=== PATIENT | male | born 1945 | race Caucasian/White ===

== ENCOUNTER 2016-11-13 20:49 | Emergency (ER) | payer MEDICARE ==
[2016-11-13] MEDS ORDERED: OXYMETAZOLINE 0.05% NASAL 15 SPRAYS/15 ML BTL NASAL ONE (21:33)
--- NOTE | 2016-11-13 23:11 | ER NURSING DOCUMENTATION ---
Nurse's Notes [facility] Name:Barry Rico Age:71 yrs Sex:Male :1945 Arrival Date:11/13/2016 Time:20:49 Bed2 Private MD: Diagnosis:Anterior Epistaxis Presentation: 11/13 21:15 Presenting complaint: Patient states: nosebleed from left nare on and off this evening. sc1 Transition of care: Home. 21:15 Method Of Arrival: Private Vehicle sc1 21:15 Acuity: CURLY 3 sc1 Triage Assessment: 21:41 General: Appears distressed, well developed, well nourished, well groomed, Behavior is sc1 cooperative, pleasant. Pain: Denies pain. Historical: - Allergies: PENICILLINS; Benadryl; "all antibiotics except tetracycline"; - Home Meds: 1. Lisinopril Oral 2. Lasix Oral 3. Coreg Oral 4. Aspirin Oral 5. pravastatin oral - PMHx: HIGH CHOLESTEROL; HYPERTENSION; Anterior Epistaxis - uncontrolled (November 01, 2016); - PSHx: UNABLE TO OBTAIN; - Immunization history: Pneumococcal vaccine status is unknown. - Ebola Screening: : Patient negative for fever greater than or equal to 101.5 degrees Fahrenheit, and additional compatible Ebola Virus Disease symptoms. Patient denies exposure to infectious person. Patient denies travel to an Ebola-affected area in the 21 days before illness onset. No symptoms or risks identified at this time. . Screenin:42 Infectious Disease Risk None. Abuse screen: Denies threats or abuse. Nutritional sc1 screening: No deficits noted. Assessment: 22:47 Reassessment: pt with only minimal bleeding after removal of nose clamp. lb Vital Signs: 21:14 BP 184 / 101; Pulse 84; Resp 20; Temp 97.8; Pulse Ox 85% on R/A; sc1 23:10 BP 154 / 82; Resp 16; lb ED Course: 20:51 Patient arrived in ED. ma1 21:12 Sherin Cruz, FLORENTIN is Primary Nurse. sc1 21:17 Triage completed. sc1 21:19 Calos Reyes MD is Attending Physician. tl1 21:42 Notified ED Physician of patient's arrival and chief complaint. Dr. Reyes notified. Arm sc1 band placed on Bed in low position Call Light in Reach Gowned HOB Elevated Side rails up x1. 21:42 Assist Provider Assist provider with nosebleed control using Afrin sprays, nasal clamp, sc1 posterior packing, Bleeding from left nare. Set up for procedure. Performed by Calos Reyes MD Bleeding decreased. Patient tolerated poorly. 23:04 Sina Mitchell MD is Referral Physician. tl1 Administered Medications: 21:10 Drug: Afrin Drops (0.05 %) 1 sprays; Route: Intranasal; Site: left nare; sc1 Outcome: 23:03 Discharge ordered by . tl1 23:10 Discharged to home ambulatory. lb 23:10 Condition: stable 23:10 Discharge Assessment: Patient awake, alert and oriented x 3. No cognitive and/or functional deficits noted. Patient verbalized understanding of disposition instructions. 23:10 Instructed on discharge instructions, follow up and referral plans. Nosebleed care 23:10 Patient left the ED. 11/14 14:16 Discharge F/U Call: Spoke with: patient. Are you having any pain? yes. How are you sc1 managing your pain? Heat/Ice Did your discharge instructions answer all of your questions? yes Have you made a f/u appointment? yes Signatures: Sherin Cruz RN RN vt1 Calos Reyes MD MD tl1 Jeri Arroyo Melissa or1
--- NOTE | 2016-11-13 23:11 | ER PHYSICIAN DOCUMENTATION ---
Physician Documentation [facility] Name:Barry Rico Age:71 yrs Sex:Male :1945 Arrival Date:11/13/2016 Time:20:49 Bed2 Private MD: Calos Rodriguez Disposition: 11/13/16 23:03 Discharged to Home/Self Care. Impression: Anterior Epistaxis. - Condition is Good. - Discharge Instructions: EPISTAXIS (Adult), NASAL PACKING, Anterior (Removable). - Medical Reconciliation form form. - Follow up: Sina Mitchell MD; When: 2 - 3 days; Reason: Recheck today's complaints, Continuance of care. - Problem is an ongoing problem. - Symptoms have improved. HPI: 11/13 20:00 This 71 yrs old Male presents to ER via Private Vehicle with complaints of tl1 Nose Bleed. 20:00 The patient presents with a nose bleed, that is apparently anterior, from the left tl1 nare, occurred spontaneously, that is continuous moderate amount with clots. Onset: The symptom(s)/episode began/occurred suddenly, 1 hour(s) ago. Associated signs and symptoms: Pertinent negatives: blurred vision, chest pain, lightheadedness, nausea, shortness of breath. Severity of symptoms: At their worst the symptoms were moderate in the emergency department the symptoms are unchanged. The patient has experienced similar episodes in the past, several times, with the last episode occurring 2 day(s) ago. The patient has been recently seen by a physician: an ENT specialist, 2 day(s) ago. 21:56 He stopped plavix 2 weeks ago due to epistaxis. He continues to take ASA 81 mg/day.. tl1 Historical: - Allergies: PENICILLINS; Benadryl; "all antibiotics except tetracycline"; - Home Meds: 1. Lisinopril Oral 2. Lasix Oral 3. Coreg Oral 4. Aspirin Oral 5. pravastatin oral - PMHx: HIGH CHOLESTEROL; HYPERTENSION; Anterior Epistaxis - uncontrolled (November 01, 2016); - PSHx: UNABLE TO OBTAIN; - Immunization history: Pneumococcal vaccine status is unknown. - Ebola Screening: : Patient negative for fever greater than or equal to 101.5 degrees Fahrenheit, and additional compatible Ebola Virus Disease symptoms. Patient denies exposure to infectious person. Patient denies travel to an Ebola-affected area in the 21 days before illness onset. No symptoms or risks identified at this time. . ROS: 21:21 ENT: Positive for nose bleed. tl1 21:21 All other systems are negative. Exam: 21:49 Constitutional: The patient appears alert, awake, in obvious distress, mildly tl1 distressed, uncomfortable. 21:49 Head/face: Exam is negative for acute changes. 21:49 Eyes: Pupils: equal, round, and reactive to light and accomodation. 21:49 ENT: External ear(s): are unremarkable, Nose: External nose: no obvious acute abnormality, bleeding, is seen from the left nare, and is moderate, that is moderate sized, clotted blood, in left nare, He is unable to blow his nose. Clots were unable to be removed with suction or bayonette forceps, so exam of the left bleeding naris was not possible. A long 4" Rhino Rocket was placed with some slowing of the bleeding.. 21:49 Neck: Exam negative for acute changes. 21:49 Respiratory: the patient does not display signs of respiratory distress, Respirations: normal, Breath sounds: are normal. 21:49 Abdomen/GI: Palpation: abdomen is soft and non-tender. 21:49 Musculoskeletal/extremity: chronic venous stasis changes of lower legs.. 21:49 Skin: Exam negative for acute changes. 21:49 Neuro: Exam negative for acute changes. Vital Signs: 21:14 BP 184 / 101; Pulse 84; Resp 20; Temp 97.8; Pulse Ox 85% on R/A; sc1 23:10 BP 154 / 82; Resp 16; lb MDM: 21:19 Patient medically screened. tl1 21:22 Patient medically screened. tl1 22:07 Differential diagnosis: spontaneous epistaxis. Data reviewed: vital signs, nurses tl1 notes, old medical records, and as a result, I will discharge patient. Counseling: I had a detailed discussion with the patient and/or guardian regarding: the historical points, exam findings, and any diagnostic results supporting the discharge/admit diagnosis, the need for outpatient follow up, to return to the emergency department if symptoms worsen or persist or if there are any questions or concerns that arise at home. Medication response: The patient's symptoms have improved. Dispensed Medications: 21:10 Drug: Afrin Drops (0.05 %) 1 sprays; Route: Intranasal; Site: left nare; sc1 Signatures: Sherin Cruz RN RN sc1 Calos Reyes MD MD tl1 Jeri Arroyo
== END 2016-11-13 23:11 | disposition home or self-care (01) ==
LOC: ER 20:49
DX: R04.0 Epistaxis (principal); I10 Essential (primary) hypertension; E78.00 Pure hypercholesterolemia, unspecified; Z79.82 Long term (current) use of aspirin; Z79.899 Other long term (current) drug therapy
CPT/HCPCS: 30901; 30903; 30905; 99282; 99283

== ENCOUNTER 2016-11-15 07:47 | Emergency (ER) | payer MEDICARE ==
--- NOTE | 2016-11-15 09:31 | ER PHYSICIAN DOCUMENTATION ---
Physician Documentation [facility] Name:Barry Rico Age:71 yrs Sex:Male :1945 Arrival Date:11/15/2016 Time:07:47 Bed2 Private MD:Gaurav Villafana ED, Scott Disposition: 11/15/16 09:10 Discharged to Home/Self Care. Impression: Anterior Epistaxis. - Condition is Good. - Discharge Instructions: EPISTAXIS (Adult), NASAL PACKING, Anterior (Removable). - Medical Reconciliation form form. - Follow up: Sina Mitchell MD; When: Tomorrow; Reason: Recheck today's complaints. - Problem is an ongoing problem. - Symptoms have improved. HPI: 11/15 09:06 This 71 yrs old Male presents to ER with complaints of Nose Bleed. sc 09:06 The patient presents with a nose bleed. sc 09:06 Onset: The symptom(s)/episode began/occurred 2 week(s) ago. Modifying factors: The sc symptoms are alleviated by packed four times, two ENT visits so far. Associated signs and symptoms: Loss of consciousness: the patient experienced no loss of consciousness, Pertinent negatives: lightheadedness, nausea. still taking asa, off plavix. Historical: - Allergies: PENICILLINS; Benadryl; "all antibiotics except tetracycline"; - Home Meds: 1. Lisinopril Oral 2. Lasix Oral 3. Coreg Oral 4. Aspirin Oral 5. pravastatin oral - PMHx: HIGH CHOLESTEROL; HYPERTENSION; Anterior Epistaxis - uncontrolled (November 01, 2016); CANCER; - Tetanus: unknown will f/u with PCP. - Ebola Screening: : Patient denies exposure to infectious person. Patient denies travel to an Ebola-affected area in the 21 days before illness onset. . - Social history: Smoking status: Patient states was never smoker of tobacco. Patient uses alcohol Patient/guardian denies using marijuana. ROS: 09:07 Constitutional: Negative for fever, chills, and weight loss. sc Eyes: Negative for injury, pain, redness, and discharge. Cardiovascular: Negative for chest pain, palpitations, and edema. Respiratory: Negative for shortness of breath, cough, wheezing, and pleuritic chest pain. Back: Negative for injury and pain. Skin: Negative for injury, rash, and discoloration. 09:07 Neuro: Negative for headache, weakness, numbness, tingling, and seizure. nd 09:07 ENT: Positive for nose bleed. Exam: Constitutional: This is a well developed, well nourished patient who is awake, alert, and in no acute distress. Head/Face: Normocephalic, atraumatic. Eyes: Pupils equal round and reactive to light, extra-ocular motions intact. Lids and lashes normal. Conjunctiva and sclera are non-icteric and not injected. Cornea within normal limits. Periorbital areas with no swelling, redness, or edema. Cardiovascular: Regular rate and rhythm with a normal S1 and S2. No gallops, murmurs, or rubs. Normal PMI, no JVD. No pulse deficits. Respiratory: Lungs have equal breath sounds bilaterally, clear to auscultation and percussion. No rales, rhonchi or wheezes noted. No increased work of breathing, no retractions or nasal flaring. Back: No spinal tenderness. No costovertebral tenderness. Full range of motion. Skin: Warm, dry with normal turgor. Normal color with no rashes, no lesions, and no evidence of cellulitis. MS/ Extremity: Pulses equal, no cyanosis. Neurovascular intact. Full, normal range of motion, negative Homans's, calves equal bilaterally. 09:08 Neuro: Awake and alert, GCS 15, oriented to person, place, time, and situation. nd Cranial nerves II-XII grossly intact. Motor strength 5/5 in all extremities. Sensory grossly intact. Cerebellar exam normal. Normal gait. 09:08 ENT: Nose: bleeding, is seen from the left nare, and is minimal, no septal hematoma is appreciated. Vital Signs: 07:50 BP 146 / 80; Pulse 92; Pulse Ox 90% on R/A; st 07:[address] Procedures: 09:08 Epistaxis treatment: Treated using nasal clamp, anterior packing, Bleeding stopped. nd MDM: 07:54 Patient medically screened. nd 09:08 Differential diagnosis: spontaneous epistaxis. Data reviewed: vital signs, nurses sc notes, old medical records, and as a result, I will discharge patient. Counseling: I had a detailed discussion with the patient and/or guardian regarding: the historical points, exam findings, and any diagnostic results supporting the discharge/admit diagnosis, the need for outpatient follow up, for a referral to a specialist. Dispensed Medications: No medications were administered Signatures: Nicolasa Hollis RN RN st Chew, Scott, MD MD sc
--- NOTE | 2016-11-15 09:31 | ER NURSING DOCUMENTATION ---
Nurse's Notes [facility] Name:Barry Rico Age:71 yrs Sex:Male :1945 Arrival Date:11/15/2016 Time:07:47 Bed2 Private MD:Gaurav Villafana Diagnosis:Anterior Epistaxis Presentation: 11/15 07:50 Presenting complaint: Patient states: pt is having another nose bleed. pt has packing st placed in the left nostril and he is bleeding threw it. the packing was placed on Wednesday. Transition of care: Home. 07:50 Method Of Arrival: Private Vehicle st 07:50 Care prior to arrival: nasal clamp placed on nose. st 07:52 Acuity: CURLY 3 st Triage Assessment: 07:50 General: Appears uncomfortable, Behavior is cooperative. Pain: Complains of pain in st nose Unable to use pain scale. pt states his nose is burning. EENT: Nares with bleeding noted on left. Neuro: No deficits noted. Cardiovascular: No deficits noted. Respiratory: No deficits noted. GI: No deficits noted. Historical: - Allergies: PENICILLINS; Benadryl; "all antibiotics except tetracycline"; - Home Meds: 1. Lisinopril Oral 2. Lasix Oral 3. Coreg Oral 4. Aspirin Oral 5. pravastatin oral - PMHx: HIGH CHOLESTEROL; HYPERTENSION; Anterior Epistaxis - uncontrolled (November 01, 2016); CANCER; - Tetanus: unknown will f/u with PCP. - Ebola Screening: : Patient denies exposure to infectious person. Patient denies travel to an Ebola-affected area in the 21 days before illness onset. . - Social history: Smoking status: Patient states was never smoker of tobacco. Patient uses alcohol Patient/guardian denies using marijuana. Screenin:50 Infectious Disease Risk None. Abuse screen: Denies threats or abuse. Denies injuries st from another. pt feels safe at home. Nutritional screening: No deficits noted. Assessment: 09:23 General: bleeding controled.. st Vital Signs: 07:50 BP 146 / 80; Pulse 92; Pulse Ox 90% on R/A; st 07:[address] ED Course: 07:48 Patient arrived in ED. arc 07:49 Gaurav Villafana DO is Private Physician. arc 07:50 Nosebleed Care Nasal Clamp Applied. st 07:50 Valuables Remains with patient Bed in low position. st 07:52 Nicolasa Hollis RN is Primary Nurse. st 07:[address] 07:54 Otto Cordoba MD is Attending Physician. mn 09:09 Sina Mitchell MD is Referral Physician. mn Administered Medications: No medications were administered Outcome: 09:10 Discharge ordered by . mn 09:28 Discharged to home ambulatory. st 09:28 Condition: improved 09:28 Discharge instructions given to patient, Instructed on discharge instructions, follow up and referral plans. 09:30 Patient [address] the ED. st Signatures: Nicolasa Hollis RN RN Otto Ayala MD MD mn Noemi Cordoba, Reg Reg arc
== END 2016-11-15 09:30 | disposition home or self-care (01) ==
LOC: ER 07:47
DX: R04.0 Epistaxis (principal); I10 Essential (primary) hypertension; Z79.82 Long term (current) use of aspirin; Z79.899 Other long term (current) drug therapy
CPT/HCPCS: 30901; 30903; 99281; 99282